=== PATIENT | male | born 1990 | race Caucasian/White ===

== ENCOUNTER 2019-08-10 03:13 | Emergency (ER) | payer MEDICAID, OTHER ==
[~2019-08-10] VITALS: Ht 188 cm; Wt 63.6 kg
[2019-08-10] MEDS ORDERED: LIDOcaine 1% W/epiNEPHrine 1:100,000 20ml vial SQ ONE (03:55)
[2019-08-10] MEDS ORDERED: TETanus/Pertussis (Acell)/Diphther VAC/PF (Tdap-Adult) 0.5ml syringe IMVAC ONE (05:00)
[2019-08-10 05:07] VITALS: BP 111/75
== END 2019-08-10 05:08 | disposition home or self-care (01) ==
LOC: ER 03:14
DX: S01.81XA Laceration without foreign body of other part of head, initial encounter (principal); S00.83XA Contusion of other part of head, initial encounter; T14.8XXA Other injury of unspecified body region, initial encounter; Z60.2 Problems related to living alone; V00.131A Fall from skateboard, initial encounter; Y93.89 Activity, other specified; Y92.89 Other specified places as the place of occurrence of the external cause; Y99.8 Other external cause status
CPT/HCPCS: 12011; 70486; 90471; 90715; 99284